=== PATIENT | female | born 1980 | race Caucasian/White ===

== ENCOUNTER 2017-08-25 23:14 | Emergency (ER) | payer SELFPAY ==
[~2017-08-25] VITALS: Ht 165.1 cm; Wt 59.0 kg
[~2017-08-25 23:14] MED LIST: ALBU90OI INH; Bactrim Ds Tab1 EACH PO; CEPH500 PO; CIPR500 PO; CYCL10 PO; FAMO20 PO; HYDACE5 PO; IBUP800 PO; META800 PO; Macrobid 100 M100 MG PO; NAPR500 PO; NITR100CA PO; OXYACE5T PO; PHENA100 PO; PHENA200 PO; PSEU120ER PO; PSEU30 PO; Pyridium200 MG PO; RXCEPH500 PO; RXCYCL10 PO; RXSULTRIDS PO; RXTRAM50 PO; SULTRIDS PO; TRAM50 PO
== END 2017-08-26 02:07 | disposition home or self-care (01) ==
LOC: ER 23:14
DX: S69.91XA Unspecified injury of right wrist, hand and finger(s), initial encounter (principal); Z87.891 Personal history of nicotine dependence; X58.XXXA Exposure to other specified factors, initial encounter
CPT/HCPCS: 29125; 73130; 99283

== ENCOUNTER 2019-05-18 20:32 | Emergency (ER) | payer SELFPAY ==
[~2019-05-18] VITALS: Ht 165.1 cm; Wt 58.1 kg
[2019-05-18] MEDS ORDERED: Augmentin 875-1 EACH PO (21:50)
== END 2019-05-18 22:04 | disposition home or self-care (01) ==
LOC: ER 20:32
DX: S51.851A Open bite of right forearm, initial encounter (principal); S51.811A Laceration without foreign body of right forearm, initial encounter; W54.0XXA Bitten by dog, initial encounter
CPT/HCPCS: 90471; 90714; 99283-25